=== PATIENT | male | born 1985 | race Two or more races ===

== ENCOUNTER 2024-08-12 02:07 | Inpatient (IN) | payer MEDICARE, MEDICAID ==
[~2024-08-12] VITALS: Ht 175.3 cm; Wt 108.9 kg
[2024-08-12 02:44] LABS: BASOPHILS % (AUTO) 0.8 % (0.0-2.0); EOSINOPHILS # (AUTO) 0.1 K/uL (0.0-0.7); HEMATOCRIT 47 % (39-51); HEMOGLOBIN 16.9 g/dL (13.5-17.5); LYMPHOCYTES # (AUTO) 2.8 K/uL (0.8-4.8); LYMPHOCYTES % (AUTO) 47.9 % (20.0-44.0); MEAN CORPUSCULAR HEMOGLOBIN 33 PG (26.0-33.0); MEAN CORPUSCULAR HGB CONC 36 g/dl (31.0-36.0); MEAN CORPUSCULAR VOLUME 91 fL (80-96); MONOCYTES # (AUTO) 0.4 K/uL (0.1-1.30); MONOCYTES % (AUTO) 6.8 % (2.0-12.0); NEUTROPHILS # (AUTO) 2.6 K/uL (1.8-8.9); NEUTROPHILS % (AUTO) 43.5 % (43.0-81.0); PLATELET COUNT (AUTO) 325 K/uL (150-450); RED BLOOD CELL COUNT(AUTO) 5.19 MIL/uL (4.5-6.0); RED CELL DISTRIBUTION WIDTH 13.1 % (11.5-15.0); WHITE BLOOD COUNT (AUTO) 5.9 K/uL (4.3-11.0)
[2024-08-12 02:53] LABS: CALCIUM, SERUM 8.7 mg/dL (8.5-10.1); CREATININE 0.9 mg/dL (0.6-1.3); POTASSIUM 3.4 mmol/L (3.5-5.1)
[2024-08-12] MEDS ORDERED: LEVETIRACETAM (500MG) 500 MG/5 ML VIAL IV ONE ×2 (02:54→23:44)
[2024-08-12] MEDS ORDERED: ONDANSETRON HCL/PF 4 MG/2 ML VIAL ONE (02:54)
[2024-08-12] MEDS ORDERED: HYDROMORPHONE 1 MG/1 ML DISP.SYRIN ONE (02:54)
[2024-08-12] MEDS: HYDROMORPHONE 1 MG/1 ML DISP.SYRIN IV ONE (02:59)
[2024-08-12] MEDS: LEVETIRACETAM (500MG) 1,000 MG in IV NS 0.9% 90 ML IV STA (02:59)
[2024-08-12] MEDS: ONDANSETRON HCL/PF - ER 4 MG/2 ML VIAL IV ONE (02:59)
[2024-08-12 03:02] LABS: ALBUMIN 4.1 g/dL (3.4-5.0); BILIRUBIN,TOTAL 0.9 mg/dL (0.2-1.0)
[2024-08-12] MEDS ORDERED: POTASSIUM CHLORIDE 10 MEQ TABLET.SA ONE (04:33)
[2024-08-12] MEDS: POTASSIUM CHLORIDE 10 MEQ TABLET.SA PO ONE ×2 (05:00→10:15)
[2024-08-12] MEDS ORDERED: Z GUARD REMEDY 4 OZ OINT TP PRN (06:00)
[2024-08-12] MEDS ORDERED: ONDANSETRON HCL/PF 4 MG/2 ML VIAL IVP PRN (06:00)
[2024-08-12] MEDS ORDERED: MAGNESIUM HYDROXIDE 30 ML UDC PO PRN (06:00)
[2024-08-12] MEDS: LACOSAMIDE 50 MG TABLET PO SCH (08:52)
[2024-08-12] MEDS: LEVETIRACETAM (250 MG) 250 MG TABLET PO SCH (08:52)
[2024-08-12] MEDS ORDERED: LACOSAMIDE ORAL SOLN 50 MG/5 ML UDC GT SCH (09:00)
[2024-08-12] MEDS ORDERED: LEVE500T20 PO (09:19)
[2024-08-12] MEDS ORDERED: LACO100T2 PO (09:19)
[2024-08-12] MEDS ORDERED: DEPAKOTE PO (09:19)
[2024-08-12 10:33] LABS: THYROID STIMULATING HORMONE 3.66 uIU/mL (0.358-3.74)
[2024-08-12 12:00] VITALS: BP 126/61; TEMP 97.9; O2SAT 95
[2024-08-12] MEDS: HYDROCODONE/APAP 5/325MG TABLET PO PRN (14:27)
[2024-08-12 16:00] VITALS: BP 107/64; TEMP 98.1; O2SAT 98
[2024-08-12 20:00] VITALS: BP 136/80; TEMP 97.5; O2SAT 98
[2024-08-12] MEDS: LORAZEPAM INJ 2 MG/ML VIAL IV PRN (21:24)
[2024-08-12 22:00] VITALS: BP 123/76; TEMP 98.1; O2SAT 98
[2024-08-12] MEDS ORDERED: LEVETIRACETAM SOL (5 ML) 100 MG/ML UDC ONE (23:22)
[2024-08-13] VITALS: BP 123/76; TEMP 98.1; O2SAT 98
[2024-08-13] MEDS: LEVETIRACETAM (500MG) 500 MG in IV NS 0.9% 100 ML IV ONE (00:08)
[2024-08-13 04:00] VITALS: BP 102/62; TEMP 98.2; O2SAT 97
[2024-08-13 04:28] LABS: APPEARANCE,URINE TURBID (CLEAR); BILIRUBIN,URINE NEGATIVE (NEGATIVE); BLOOD, URINE NEGATIVE Ery/uL (NEGATIVE); COLOR,URINE YELLOW (YELLOW); KETONES,URINE NEGATIVE (NEGATIVE); LEUKOCYTE ESTERASE ,URINE NEGATIVE (NEGATIVE); NITRITE, URINE POSITIVE (NEGATIVE); PROTEIN,URINE NEGATIVE (NEGATIVE); UGLUCOSE NEGATIVE (NEGATIVE); UROBILINOGEN,URINE 0.2 EU/dL (0.2)
[2024-08-13 04:29] LABS: BACTERIA,URINE Many /HPF (None Seen)
[2024-08-13 04:30] LABS: ADD URINE CULTURE YES; RBC,URINE 0-2 /HPF (0-2); URINE AMORPHOUS URATE Many /HPF (None Seen)
[2024-08-13 04:31] LABS: SQUAMOUS EPITHELIAL CELL,UR Few /HPF (None Seen)
[2024-08-13 04:35] LABS: AMPHETAMINE, URINE NEGATIVE (NEGATIVE); BARBITURATE, URINE NEGATIVE (NEGATIVE); BENZODIAZEPINE, URINE NEGATIVE (NEGATIVE); CANNABINOID, URINE NEGATIVE (NEGATIVE); COCCAINE, URINE POSITIVE (NEGATIVE); OPIATE, URINE POSITIVE (NEGATIVE); PHENCYCLIDINE SCREEN,URINE NEGATIVE (NEGATIVE)
[2024-08-13 05:10] LABS: FOLIC ACID 8.9 ng/mL (>3.0)
[2024-08-13 06:47] LABS: BASOPHILS % (AUTO) 0.5 % (0.0-2.0); EOSINOPHILS # (AUTO) 0.1 K/uL (0.0-0.7); EOSINOPHILS % (AUTO) 2.5 % (0.0-6.0); HEMATOCRIT 46 % (39-51); HEMOGLOBIN 16.5 g/dL (13.5-17.5); LYMPHOCYTES # (AUTO) 2.4 K/uL (0.8-4.8); MEAN CORPUSCULAR HEMOGLOBIN 33 PG (26.0-33.0); MEAN CORPUSCULAR HGB CONC 36 g/dl (31.0-36.0); MEAN CORPUSCULAR VOLUME 92 fL (80-96); MONOCYTES # (AUTO) 0.6 K/uL (0.1-1.30); MONOCYTES % (AUTO) 10.7 % (2.0-12.0); NEUTROPHILS # (AUTO) 2.7 K/uL (1.8-8.9); NEUTROPHILS % (AUTO) 45.3 % (43.0-81.0); PLATELET COUNT (AUTO) 280 K/uL (150-450); RED BLOOD CELL COUNT(AUTO) 5.05 MIL/uL (4.5-6.0); RED CELL DISTRIBUTION WIDTH 13.4 % (11.5-15.0); WHITE BLOOD COUNT (AUTO) 5.9 K/uL (4.3-11.0)
[2024-08-13 07:39] LABS: CALCIUM, SERUM 8.6 mg/dL (8.5-10.1); MAGNESIUM 2.2 mg/dL (1.8-2.4); PHOSPHORUS 4.5 mg/dL (2.5-4.9); POTASSIUM 3.6 mmol/L (3.5-5.1)
[2024-08-13 08:00] VITALS: BP 131/84; TEMP 97.7; O2SAT 94
[2024-08-13] MEDS: LEVETIRACETAM (250 MG) 250 MG TABLET PO SCH (08:59)
[2024-08-13] MEDS: ACETAMINOPHEN 325 MG TABLET PO PRN (09:04)
[2024-08-13 12:00] VITALS: BP 121/87; TEMP 97.7; O2SAT 95
[2024-08-13] MEDS: CEPHALEXIN MONOHYDRATE 500 MG CAPSULE PO SCH (13:16)
[2024-08-13 16:00] VITALS: BP 145/88; TEMP 97.7; O2SAT 96
[2024-08-13 20:00] VITALS: BP 124/81; TEMP 97.5; O2SAT 97
[2024-08-14] VITALS: BP 109/67; TEMP 97.5; O2SAT 98
[2024-08-14 04:00] VITALS: BP 110/69; TEMP 97.7; O2SAT 98
[2024-08-14 08:00] VITALS: BP 109/67; TEMP 98.3; O2SAT 96
[2024-08-14 12:00] VITALS: BP 119/80; TEMP 97.7; O2SAT 98
[2024-08-14 16:00] VITALS: BP 123/83; TEMP 97.9; O2SAT 94
[2024-08-14] MEDS ORDERED: LACO100T2 PO ×2 (16:28→16:32)
[2024-08-14] MEDS ORDERED: LEVE1000 PO (16:28)
[2024-08-16 13:11] LABS: VITAMIN B1 THIAMINE,WB 105.5 nmol/L (66.5-200.0)
== END 2024-08-14 17:09 | disposition home or self-care (01) | DRG 101 ==
LOC: ER 02:09 → TELE1 06:04
PROVIDERS: ADMIT Nurse Practitioner Acute Care; ATTEND Nurse Practitioner Acute Care
DX: G40.909 Epilepsy, unspecified, not intractable, without status epilepticus (principal); Z91.199 Patient's noncompliance with other medical treatment and regimen due to unspecified reason; Z98.2 Presence of cerebrospinal fluid drainage device; E87.6 Hypokalemia; F10.20 Alcohol dependence, uncomplicated; Y90.4 Blood alcohol level of 80-99 mg/100 ml; Z91.148 Patient's other noncompliance with medication regimen for other reason; Z79.899 Other long term (current) drug therapy; Z88.8 Allergy status to other drugs, medicaments and biological substances; R73.9 Hyperglycemia, unspecified; Z87.828 Personal history of other (healed) physical injury and trauma; F19.10 Other psychoactive substance abuse, uncomplicated
CPT/HCPCS: 36415; 70450-TC; 71045-TC; 80048-TC; 80053-TC; 81001; 82607-TC; 83735-TC; 83880; 83921; 84100-TC; 84425; 84443-TC; 84484-TC; 85025-TC; 87081-TC; 87086-TC; 97110-TC; 97530-TC; 97535-TC; A4223; G0378; G0480; J1171; J1953; J2060; J2405; J7030; J7050